=== PATIENT | female | born 1955 | race Caucasian/White ===

== ENCOUNTER 2022-04-19 08:10 | Emergency (ER) | payer MEDICARE ==
[~2022-04-19 08:10] MED LIST: LYRICA 150MG C150 MG PO; LYRICA150 MG PO; MORPHINE 15MG E15 MG PO; MORPHINE SULFAT15 M1 PO; MORPHINE SULFAT15 MG PO; MS CONTIN15 M1 PO; MS CONTIN15 MG PO; NARCAN4 MG INH; PREGABALIN150 MG PO; VOLTAREN100 GM TOP
[2022-04-19 10:27] LABS: INR 2.55 (0.9-1.2); PROTHROMBIN TIME 26.5 SECONDS (11.9-13.9)
== END 2022-04-19 10:38 | disposition home or self-care (01) ==
LOC: FER 08:10
PROVIDERS: Emergency Medicine
DX: D68.8 Other specified coagulation defects (principal); I10 Essential (primary) hypertension; Z87.891 Personal history of nicotine dependence
CPT/HCPCS: 36415; 85610; 85730; 99283